=== PATIENT | female | born 1955 | race Two or more races ===

== ENCOUNTER 2022-01-08 14:05 | Emergency (ER) | payer OTHER ==
[~2022-01-08] VITALS: Ht 162.6 cm; Wt 56.7 kg
[2022-01-08] MEDS ORDERED: SYNJARDY 5-1,01 EACH PO (14:22)
[2022-01-08] MEDS ORDERED: LIPITOR20 MG PO (14:23)
[2022-01-08] MEDS ORDERED: AVALIDE 300-121 EACH PO (14:23)
== END 2022-01-08 17:39 | disposition home or self-care (01) ==
LOC: ER 14:05
DX: K52.9 Noninfective gastroenteritis and colitis, unspecified (principal); Z20.822 Contact with and (suspected) exposure to COVID-19

== ENCOUNTER 2022-08-18 07:45 | Inpatient (IN) | payer OTHER ==
[~2022-08-18] VITALS: Ht 162.6 cm; Wt 54.9 kg
[~2022-08-18 07:45] MED LIST: AVALIDE 300-121 EACH PO; LIPITOR20 MG PO; SYNJARDY 5-1,01 EACH PO
== END 2022-08-21 14:10 | disposition home or self-care (01) | DRG 743 ==
LOC: OB/GYN 08-19 07:45 → O/R 08-19 08:23 → OB/GYN 08-19 08:23
PROVIDERS: ADMIT Obstetrics & Gynecology; ATTEND Obstetrics & Gynecology
PROC: 0UT70ZZ Resection of Bilateral Fallopian Tubes, Open Approach (ICD-10-PCS; 2022-08-19)
PROC: 0UT20ZZ Resection of Bilateral Ovaries, Open Approach (ICD-10-PCS; 2022-08-19)
PROC: 0TNB0ZZ Release Bladder, Open Approach (ICD-10-PCS; 2022-08-19)
PROC: 0UN20ZZ Release Bilateral Ovaries, Open Approach (ICD-10-PCS; 2022-08-19)
PROC: 0DNW0ZZ Release Peritoneum, Open Approach (ICD-10-PCS; 2022-08-19)
PROC: 0DN80ZZ Release Small Intestine, Open Approach (ICD-10-PCS; 2022-08-19)
PROC: 0UT90ZZ Resection of Uterus, Open Approach (ICD-10-PCS; principal; 2022-08-19 11:15)
DX: D25.1 Intramural leiomyoma of uterus (principal); D25.2 Subserosal leiomyoma of uterus; N73.6 Female pelvic peritoneal adhesions (postinfective); N83.291 Other ovarian cyst, right side; N83.292 Other ovarian cyst, left side; Z20.822 Contact with and (suspected) exposure to COVID-19

== ENCOUNTER 2023-03-24 05:49 | Inpatient (IN) | payer OTHER ==
[2023-03-22 11:36] LABS: HEMATOCRIT 40.9 % (36.0-45.00); MEAN CELL VOLUME 86.9 fL (80.00-100.00); MEAN CORPUSCULAR HEMOGLOBIN 29.8 pg (27.00-32.0); MEAN CORPUSCULAR HGB CONC 34.3 g/dl (32.0-36.0); PLATELET COUNT 271 K/uL (150-450); RED CELL DISTRIBUTION WIDTH 14.1 % (11.5-14.5)
[2023-03-22 11:51] LABS: URINE APPEARANCE Clear; URINE BILIRRUBIN Negative (NEGATIVE); URINE BLOOD Moderate; URINE COLOR Yellow; URINE LEUKOCYTE Negative; URINE NITRATE Negative; URINE PROTEIN Negative (NEGATIVE); URINE UROBILINOGEN 0.2 E.U./dl
[2023-03-22 11:55] LABS: URINE BACTERIA 6.2 uL (0.0-1933); URINE EPITHELIAL CELLS 3.8 uL (0.0-38.8); URINE RBC 18.1 uL (0.0-20.8); URINE WBC 6.1 uL (0.0-23.2)
[2023-03-22 11:55] LABS: INR < 0.93; PARTIAL THROMBOPLASTIN TIME 26.7 SECONDS (22.0-34.0); PROTHROMBIN TIME 9.8 SECONDS (9.0-11.5)
[2023-03-22 12:22] LABS: URINE GLUCOSE >=1000 MG/DL (NEGATIVE)
[2023-03-22 12:34] LABS: ALBUMIN 3.9 gm/dL (3.4-5.0); BILIRUBIN TOTAL 0.5 mg/dL (0.3-1.2); CALCIUM 9.4 mg/dL (8.5-10.1); CREATININE SERUM 0.66 mg/dL (0.55-1.02); GFR 88.8; GLOBULINA 3.5 G/DL (2.4-3.5); POTASSIUM 4.22 mEq/L (3.5-5.1); TOTAL PROTEIN 7.4 gm/dL (6.4-8.2)
[~2023-03-24] VITALS: Ht 162.6 cm; Wt 54.4 kg
== END 2023-03-25 10:50 | disposition home or self-care (01) | DRG 748 ==
LOC: CIR.AMB 05:49 → OB/GYN 10:42 → SURH 10:42 → O/R 10:47 → CIR.AMB 11:15 → OB/GYN 11:28
PROVIDERS: ADMIT Obstetrics & Gynecology; ATTEND Obstetrics & Gynecology
PROC: 0JQC0ZZ Repair Pelvic Region Subcutaneous Tissue and Fascia, Open Approach (ICD-10-PCS; principal; 2023-03-24 10:00)
DX: N81.11 Cystocele, midline (principal); Z20.822 Contact with and (suspected) exposure to COVID-19